=== PATIENT | male | born 1985 ===

== ENCOUNTER 2024-04-09 07:29 | Day surgery (SDC) | payer OTHER ==
[~2024-04-09 07:29] MED LIST: LOSARTAN POTASS50 MG PO
== END 2024-04-09 14:55 | disposition home or self-care (01) ==
LOC: CIR.AMB 07:29
PROVIDERS: ATTEND Colon & Rectal Surgery
DX: K60.1 Chronic anal fissure (principal); K62.4 Stenosis of anus and rectum; I10 Essential (primary) hypertension; H52.209 Unspecified astigmatism, unspecified eye; H52.10 Myopia, unspecified eye